=== PATIENT | female | born 1935 | race Caucasian/White ===

== ENCOUNTER 2016-07-01 12:30 | Emergency (ER) | payer OTHER, MEDICARE ==
[2016-07-01 12:50] VITALS: RESP 16
--- NOTE | 2016-07-01 14:01 | UCPHY ---
H & P Time Seen by Provider: 07/01/16 13:36 Patient Type: Established HPI/ROS: HPI High blood pressure. 81-year-old female by private vehicle. This patient was seen at her dentist's office. At her dentist's office blood pressure was high in the 150 systolic. They did not perform her dental exam and sent her to her primary care physician' s office for evaluation. She went to see Dr. Culver, her primary care physician. She could not get in to see Dr. Culver on short notice and was sent to the [facility]. At Urgent Care her blood pressure was again elevated in the 160s and they told her to come to this Urgent Care for further evaluation. She reports also that she has had a dull, gradual onset global headache which has been intermittent in nature for the last 1-2 weeks. She reports that it is resolved with Tylenol. She reports having this headache at this time but reports that is better. She has not had a fever. No other complaints. No history of trauma. She is not on anticoagulants. ROS: Constitutional: No fever, no chills. No weakness. Eyes: No discharge. No changes in vision. ENT: No sore throat. No nasal congestion or rhinorrhea. Respiratory: No cough. No shortness of breath. Cardiac: No chest pain, no palpitations. Gastrointestinal: No abdominal pain, no vomiting, no diarrhea. Genitourinary: No hematuria. No dysuria or increased frequency with urination. Musculoskeletal: No back pain. No neck pain. No myalgias or arthralgias. Skin: No rashes. Neurological: As above. No focal weakness or altered sensation. Past medical history: Irritable bowel syndrome, left-sided nephrectomy, urostomy, cholecystectomy, hysterectomy, as above. Social history: Nonsmoker. Here by herself Physical Exam: General Appearance: Alert, no distress. This patient is responding to questions appropriately and in full sentences. This patient appears well- hydrated and well-nourished. Eyes: Pupils equal and round no pallor or injection. No lid edema, erythema or injection. ENT, Mouth: Mucous membranes are moist. The pharyngeal tissues are unremarkable. No edema or swelling. No asymmetry suggestive of abscess. No erythema or exudates. No photophobia. No nystagmus. Respiratory: There are no retractions, lungs are clear to auscultation with good air movement bilaterally. Cardiovascular: Regular rate and rhythm. No murmur. Neurological: Motor sensory function is grossly intact. Cranial nerves are normal. Gait is normal. Skin: Warm and dry, no rashes. Musculoskeletal: Neck is supple and nontender. No pain on flexion of the neck. Extremities are symmetrical. All joints range without pain or impingement. Psychiatric: No agitation. No depression. Database: EKG: Imaging: Procedures: Emergency department course: Vital signs reviewed. She is moderately hypertensive with a blood pressure 165/ 100 in triage. She has a benign physical exam. She does not have a significant headache at this time. I offered her a stronger medication for her headache such as hydrocodone but she declined this. She has 1 kidney and cannot take NSAIDs. I discussed management of her blood pressure. I explained to her that I thought it was premature to start her on an antihypertensive medication here at the urgent care. I explained that this would best be done by her primary care physician who can monitor her blood pressure on a regular basis and follow her reaction to the prescribed antihypertensive medication if that is needed. She feels comfortable with this plan. Her presentation is not consistent with hypertensive emergency. She feels comfortable going home. I feel she is safe for discharge. She will call her primary care physician this afternoon for follow-up with Dr. Culver in the next day or 2. Return to emergency department precautions discussed. She was discharged in good condition. Differential Diagnosis: The differential diagnosis on this patient includes but is not limited to new onset hypertension, headache. Hypertensive emergency, subarachnoid hemorrhage, meningitis, encephalitis, cavernous sinus thrombosis, sagittal sinus thrombosis , intracranial mass, temporal arteritis unlikely. This represents a partial list of diagnoses considered. These considerations are based on history, physical exam, past history, reassessment and diagnostic testing. Smoking Status: Never smoked Constitutional: Initial Vital Signs Temperature (C) 36.9 C 07/01/16 12:44 Heart Rate 91 07/01/16 12:44 Respiratory Rate 16 07/01/16 12:44 Blood Pressure 165/100 H 07/01/16 12:44 O2 Sat (%) 95 07/01/16 12:44 O2 Delivery Mode Room Air Allergies/Adverse Reactions: Sulfa (Sulfonamide Antibiotics) Allergy (Mild, Verified 07/01/16 12:47) Rash Home Medications: Medication Instructions Recorded Ascorbic Acid [Vitamin C 500 mg 07/05/12 (OTC)] Gluc 2Kcl/Chondr/Jacinta Hy/Hy AC 07/05/12 [Glucosamine & Chondroitin Cap] Multivitamins [Tab-A-Kristopher] 07/05/12 Zolpidem Tartrate [Ambien 10 mg] 07/05/12 Premarin 07/01/16 Departure - Departure Disposition: Home, Routine, Self-Care Clinical Impression: Headache, Elevated blood pressure reading Condition: Good Instructions: General Headache (ED), Hypertension (ED) Additional Instructions: Read and follow provided instructions. Follow-up with your primary care physician, Dr. Culver in the neck 1-2 days for re-evaluation of your blood pressure and discussion of placement on a antihypertensive medication. It is also important that your blood pressure is well managed because of your history of having only 1 kidney. Return to the emergency department for worsening headache, chest pain, shortness of breath or other serious concerns. Referrals: Gladsi Culver MD [Primary Care Provider] - As per Instructions - PQRS PQRS Measurement: 134: Depression screening and followup, PRIME MD-PHQ2 (12 years and older) Over the last 2 weeks, how often have you been bothered by any of the following problems? 1. Feeling down, depressed, or hopeless? 2. Little interest or pleasure in doing things? Answered no to both questions. 130: Documentation of medications. Reviewed all patient medications, doses, route and frequency. 226: Do you smoke? No. 47: 65 and older: Advanced care planning. Patient designates surrogate decision maker as family. 51: 18 years old and older with diagnosis of COPD, spirometry performance. NA 52: 18 years old and older with COPD and symptoms of COPD or FEV1<60% predicted prescribed a B Agonist. NA
[2016-07-01 14:17] VITALS: BP 159/105; PULSE 87; TEMP 98.1; O2SAT 97
== END 2016-07-01 14:15 | disposition home or self-care (01) ==
LOC: CED 12:30
DX: R03.0 Elevated blood-pressure reading, without diagnosis of hypertension (principal); R51 Headache
CPT/HCPCS: 99214-PO; G0463-PO

== ENCOUNTER → 2016-12-02 | Outpatient (CLI) | payer OTHER, MEDICARE | LOC: BHFA 11:30 | PROVIDERS: ATTEND Internal Medicine | DX: I49.3 Ventricular premature depolarization (principal); R06.02 Shortness of breath ==

== ENCOUNTER → 2016-12-09 | Outpatient (CLI) | payer OTHER, MEDICARE | LOC: BHLMT 13:00 | PROVIDERS: ATTEND Internal Medicine Interventional Cardiology | DX: R06.02 Shortness of breath (principal); I10 Essential (primary) hypertension | CPT/HCPCS: 78452; 93017; A9500; J2785 ==

== ENCOUNTER → 2016-12-29 | Outpatient (CLI) | payer OTHER, MEDICARE | LOC: BHFA 10:00 | PROVIDERS: ATTEND Internal Medicine Cardiovascular Disease | DX: R06.02 Shortness of breath (principal) ==

== ENCOUNTER 2017-08-26 20:08 | Observation (INO) | payer OTHER, MEDICARE ==
[2017-08-26] MEDS ORDERED: NS 500 ML IV ONE (20:37)
[2017-08-26] MEDS ORDERED: ONDANSETRON 4 MG/2 ML VIAL IVP ONE (20:47)
[2017-08-26] MEDS ORDERED: FAMOTIDINE 20 MG/NACL 50 ML IV ONE (20:47)
[2017-08-26] MEDS ORDERED: HYDROmorphONE/DILAUDID 2 MG/ML INJ IVP ONE (20:47)
--- NOTE | 2017-08-26 20:52 | EDPHY ---
H & P Time Seen by Provider: 08/26/17 20:26 HPI/ROS: HPI Abdominal pain, nausea. 82-year-old female by private vehicle with family. This patient reports that at approximately 2:00 p.m. She developed mid and left upper abdominal pain described as aching and cramping. She has had nausea since this time and no appetite. She has a history of prior bowel obstructions and states that this pain feels similar to the pain she has had with these obstructions. She also describes the pain is radiating to her back. Her last meal was at approximately 12 noon. Last bowel movement was earlier this morning. She describes this is normal. No bloody or melenic stool. No change in diet. ROS: Constitutional: No fever, no chills. No weakness. Eyes: No discharge. No changes in vision. ENT: No sore throat. No nasal congestion or rhinorrhea. Respiratory: No cough. No shortness of breath. Cardiac: No chest pain, no palpitations. Gastrointestinal: As above, no diarrhea. Genitourinary: No hematuria. No dysuria or increased frequency with urination. Musculoskeletal: No back pain. No neck pain. No myalgias or arthralgias. Skin: No rashes. Neurological: No headache. No focal weakness or altered sensation. Past medical history: Ureteral bowel syndrome, left nephrectomy, cholecystectomy, appendectomy, hysterectomy, urostomy. Social history: Nonsmoker. Here with family member. No alcohol. Physical Exam: General Appearance: Alert, she does not appear in distress. This patient is responding to questions appropriately and in full sentences. This patient appears well-hydrated and well-nourished. Eyes: Pupils equal and round no pallor or injection. No lid edema, erythema or injection. Respiratory: There are no retractions, lungs are clear to auscultation with good air movement bilaterally. Cardiovascular: Regular rate and rhythm. No murmur. Gastrointestinal: Abdomen is soft with vague mid and left upper quadrant tenderness on palpation which is mild, no masses, bowel sounds are diminished but present. No focal tenderness at McBurney's point. No Willett sign. Neurological: Motor sensory function is grossly intact. Cranial nerves are normal. Gait is normal. Skin: Warm and dry, no rashes. Musculoskeletal: Neck is supple and nontender. Extremities are symmetrical. All joints range without pain or impingement. Psychiatric: No agitation. No depression. Database: EKG: Imaging: CT scan of abdomen and pelvis without IV contrast: Significant for fluid filled loops of small bowel in the left upper quadrant ileus versus partial small-bowel obstruction. Likely mesenteric adenitis and distended fluid-filled stomach. Other chronic changes noted. Results discussed with staff radiologist Dr. Nicholas Antonio. Procedures: Emergency department course: IV placed. The patient was placed on a monitor. She will be started on IV normal saline with 500 cc to 1 L to be given over the next hour. She will be given 0.25 mg of IV hydromorphone, 4 mg of IV Zofran and 20 mg of IV Pepcid initially. 10:15 p.m., patient re-evaluated. Resting comfortably at this time. Results of blood work and CT scan discussed with her and her son who is at the bedside. She can provide us with a urine sample at this time. She states that when she does developed urinary tract infection she usually has coinciding abdominal problems. General surgery paged. 10:25 p.m., spoke with general surgeon on-call Dr. Nicholas Antonio. Case discussed in detail with him. He will see this patient shortly in the emergency department. 10:55 p.m., urinalysis indicates infection. Patient will be given 1 g of IV Rocephin. Dr. Nicholas Antonio at the bedside. We will admit this patient for observation to his service. Her remaining emergency department course under my care has been uneventful. She was admitted in stable condition. Differential Diagnosis: The differential diagnosis on this patient includes but is not limited to bowel obstruction, gastritis, aortic aneurysm/dissection. This represents a partial list of diagnoses considered. These considerations are based on history, physical exam, past history, reassessment and diagnostic testing. Smoking Status: Never smoked Constitutional: Initial Vital Signs Temperature (C) 36.7 C 08/26/17 20:16 Heart Rate 92 08/26/17 20:16 Respiratory Rate 18 08/26/17 20:16 Blood Pressure 123/82 H 08/26/17 20:16 O2 Sat (%) 94 08/26/17 20:16 O2 Delivery Mode Nasal Cannula O2 (L/minute) 2 Allergies/Adverse Reactions: Sulfa (Sulfonamide Antibiotics) Allergy (Mild, Verified 08/26/17 20:20) Rash Home Medications: Medication Instructions Recorded Ascorbic Acid [Vitamin C 500 mg 07/05/12 (OTC)] Glucosam/Chondr/Collagn/Hyalur 07/05/12 [Glucosamine & Chondroitin Cap] Multivitamins [Tab-A-Kristopher] 07/05/12 Zolpidem Tartrate [Ambien 10 mg] 07/05/12 Premarin 07/01/16 Losartan Potassium [Cozaar 25 mg 25 mg PO DAILY 08/26/17 (*)] Uti Preventative? Name 08/26/17 Medical Decision Making - Diagnostics Imaging Results: Imaging Impressions Abdomen/Pelvis CT 08/26/17 20:48 Impression: 1. There are patulous loops of small bowel, particularly at the level of the mid -to-distal jejunum and proximal ileum, and while a partial obstructive process ( versus ileus) cannot be excluded, there is no obstructive lesion observed. The patient has been previously evaluated in 2012 and [address] findings. A mild left upper quadrant mesenteric adenitis may be present. 2. Status post left nephrectomy, cystectomy, ileal conduit, and cholecystectomy. Findings were discussed with Ced Kilpatrick MD at 22:09, on 08/26/2017. - Data Points Laboratory Results: Laboratory Results 08/26/17 20:44 08/26/17 20:44 08/26/17 08/26/17 08/26/17 22:25 20:44 20:44 WBC 13.05 10^3/uL H 10^3/uL (3.80-9.50) RBC 4.53 10^6/uL 10^6/uL (4.18-5.33) Hgb 14.2 g/dL g/dL (12.6-16.3) Hct 41.8 % % (38.0-47.0) MCV 92.3 fL fL (81.5-99.8) MCH 31.3 pg pg (27.9-34.1) MCHC 34.0 g/dL g/dL (32.4-36.7) RDW 13.6 % % (11.5-15.2) Plt Count 292 10^3/uL 10^3/uL (150-400) MPV 10.2 fL fL (8.7-11.7) Neut % (Auto) 75.3 % H % (39.3-74.2) Lymph % (Auto) 16.0 % % (15.0-45.0) Rusk % (Auto) 7.1 % % (4.5-13.0) Eos % (Auto) 0.5 % L % (0.6-7.6) Baso % (Auto) 0.6 % % (0.3-1.7) Nucleat RBC Rel Count 0.0 % % (0.0-0.2) Absolute Neuts (auto) 9.83 10^3/uL H 10^3/uL (1.70-6.50) Absolute Lymphs (auto) 2.09 10^3/uL 10^3/uL (1.00-3.00) Absolute Monos (auto) 0.93 10^3/uL H 10^3/uL (0.30-0.80) Absolute Eos (auto) 0.06 10^3/uL 10^3/uL (0.03-0.40) Absolute Basos (auto) 0.08 10^3/uL 10^3/uL (0.02-0.10) Absolute Nucleated RBC 0.00 10^3/uL 10^3/uL (0-0.01) Immature Gran % 0.5 % % (0.0-1.1) Immature Gran # 0.06 10^3/uL 10^3/uL (0.00-0.10) Sodium 140 mEq/L mEq/L (135-145) Potassium 4.5 mEq/L mEq/L (3.3-5.0) Chloride 101 mEq/L mEq/L (97-110) Carbon Dioxide 23 mEq/l mEq/l (22-31) Anion Gap 16 mEq/L mEq/L (8-16) BUN 31 mg/dL H mg/dL (7-23) Creatinine 1.0 mg/dL mg/dL (0.6-1.0) Estimated GFR 53 Glucose 102 mg/dL H mg/dL (70-100) Calcium 10.4 mg/dL mg/dL (8.5-10.4) Total Bilirubin 0.7 mg/dL mg/dL (0.1-1.4) Conjugated Bilirubin 0.4 mg/dL mg/dL (0.0-0.5) Unconjugated Bilirubin 0.3 mg/dL mg/dL (0.0-1.1) AST 34 IU/L IU/L (14-46) ALT 50 IU/L IU/L (9-52) Alkaline Phosphatase 104 IU/L IU/L (38-126) Total Protein 7.6 g/dL g/dL (6.3-8.2) Albumin 4.3 g/dL g/dL (3.5-5.0) Lipase 99 IU/L IU/L (23-300) Urine Color YELLOW Urine Appearance HAZY Urine pH 5.0 (5.0-7.5) Ur Specific Rembrandt 1.016 (1.002-1.030) Urine Protein NEGATIVE (NEGATIVE) Urine Ketones TRACE H (NEGATIVE) Urine Blood NEGATIVE (NEGATIVE) Urine Nitrate POSITIVE H (NEGATIVE) Urine Bilirubin NEGATIVE (NEGATIVE) Urine Urobilinogen NEGATIVE EU EU (0.2-1.0) Ur Leukocyte Esterase NEGATIVE (NEGATIVE) Urine RBC 5-10 /hpf H /hpf (0-3) Urine WBC 25-50 /hpf H /hpf (0-3) Ur Epithelial Cells NONE SEEN /lpf /lpf (NONE-1+) Urine Bacteria 1+ /hpf H /hpf (NONE SEEN) Urine Mucus TRACE /lpf /lpf (NONE-1+) Urine Glucose NEGATIVE (NEGATIVE) Medications Given: Discontinued Medications Hydromorphone HCl (Dilaudid) 0.25 mg IVP EDNOW ONE Stop: 08/26/17 20:48 Last Admin: 08/26/17 20:52 Dose: 0.25 mg Sodium Chloride (Ns) 500 mls @ 0 mls/hr IV EDNOW ONE; Wide Open PRN Reason: Protocol Stop: 08/26/17 20:38 Last Admin: 08/26/17 20:52 Dose: 500 mls Famotidine/Sodium Chloride (Pepcid 20 Mg (Premix)) 50 mls @ 200 mls/hr IV EDNOW ONE Stop: 08/26/17 21:01 Last Admin: 08/26/17 20:53 Dose: 50 mls Ondansetron HCl (Zofran) 4 mg IVP EDNOW ONE Stop: 08/26/17 20:48 Last Admin: 08/26/17 20:52 Dose: 4 mg Departure - Departure Disposition: [facility] Clinical Impression: Abdominal pain, Partial small bowel obstruction, Urinary tract infection Additional Instructions: Ceftriaxone, 1 g IV every 12 hr while here. On discharge Keflex 500 mg 4 times daily for 5 days or cefuroxime 500 mg twice daily for 5 days. Referrals: NONE *PRIMARY CARE P,. [Primary Care Provider] - As per Instructions
[2017-08-26 21:02] LABS: PLATELET COUNT 292 10^3/uL (150-400)
--- NOTE | 2017-08-26 23:34 | GDS ---
[f rep st] history and physical CHIEF COMPLAINT: Abdominal pain. PRESENT ILLNESS: An 82-year-old female who presents with some degree of abdominal discomfort. No vomiting. She states she had 2 bowel movements this morning, but has not passed any flatus or stool since that time. She states when she gets urinary tract infections she often has abdominal complaints. She also has been hospitalized at least twice for partial small-bowel obstructions, both of which resolved without surgery and without NG tube decompression. ALLERGIES: Sulfa. CURRENT MEDICATIONS: losartan. and a urinary antibiotic for suppresion. PREVIOUS SURGERY: Cystectomy 1996 and a left nephrectomy in 1991, cholecystectomy 2011. SOCIAL HISTORY: Nonsmoker. No alcohol use. REVIEW OF SYSTEMS: Denies asthma, heart trouble, diabetes, epilepsy, rheumatic fever. PHYSICAL EXAM: GENERAL: A pleasant elderly female. HEENT: No scleral icterus. Pharynx clear. NECK: Supple, without adenopathy. LUNGS: Clear. HEART: Normal S1, S2, without murmur. ABDOMEN: Mildly distended. A right lower quadrant ileal loop conduit is present. No obvious parastomal hernia. Healed midline incision. No incisional hernia is found. EXTREMITIES: Exam unremarkable. NEUROLOGIC: Exam unremarkable. DATA REVIEWED: White blood count 13,000. Electrolytes normal. CT scan is personally reviewed, showing loops of distended small bowel 3.4 cm in largest size. No clear transition zone. Some distal terminal ileum is distended, as well. The ileocecal valve is patent. Right colon has modest amount of stool in it. The left colon more decompressed. The radiologist interprets this as ileus versus small-bowel obstruction. The patient also has a potential urinary tract infection with 1+ bacteria seen, 25-50 white blood cells, nitrite positive although leukocyte esterase negative. ASSESSMENT: The patient has received antibiotics for the urinary tract infection in the ER and we will continue this. I would not put an NG tube in, even though her stomach is dilated on CT scan. I explained to her that if she starts vomiting, an NG tube might be indicated. We will observe her for resolution of this small bowel process. If she starts passing gas and having stools, she can be discharged home to complete oral antibiotics for her urinary tract infection, and if her condition deteriorates, an NG tube and possibly surgery would be indicated. /[id number]/MODL MTDD
[2017-08-27] MEDS: POTASSIUM Cl (KCl) 20 MEQ in LR 1,000 ML IV SCH ×2 (00:25→10:56)
[2017-08-27] MEDS: ONDANSETRON 4 MG/2 ML VIAL IVP PRN ×2 (00:30→06:46)
[2017-08-27] MEDS ORDERED: LOSARTAN POTASSIUM 25 MG TAB PO SCH (09:00)
--- NOTE | 2017-08-27 12:56 | ASMTCMCOM ---
CM Note CM Note Notes: Reviewed chart, discussed w/RN, and met w/pt. She lives at home independantly and manges well. She will dc home independantly when medically stable. Date Signed: 08/27/2017 12:55 PM Electronically Signed By:Nita Perry RN
[2017-08-27 15:15] VITALS: BP 109/66
--- NOTE | 2017-08-27 19:08 | SOAPPROG ---
SOAP Progress Note Assessment/Plan: Assessment:patient with complaints of nausea and pain overnight and presently. no emesis. no flatus. afebrile. abd dist, soft. no succussion splash. CT images reviewed from last sharon - PSBO with prob pelvic transition zone. UTI - given rocephin - she does note recent fatigue (has ileal conduit). KUB ordered. NPO for now. if evid persistent SBO, will place NGT. final reccs to follow. care plan reviewed with patient and nurse at bedside. images later completed- normal bowel gas pattern. she was without further pain or nausea and hungry. she started pass flatus. diet was advanced. she requested to be discharged to home later that afternoon - safe from surgical perspective - she is reliable and knows to call or return for further questions or concerns. Plan: 08/27/17 19:05 Objective: Vital Signs Temp Pulse Resp BP Pulse Ox 36.8 C 70 18 109/66 91 L 08/27/17 15:14 08/27/17 15:14 08/27/17 15:14 08/27/17 15:14 08/27/17 15:14 08/26/17 08/27/17 08/28/17 05:59 05:59 05:59 Intake Total 750 Balance 750 ICD10 Worksheet Patient Problems: Problems Problem Status Onset Abdominal pain Acute Partial small bowel obstruction Acute Urinary tract infection Acute
--- NOTE | 2017-08-27 19:59 | GDS ---
[f rep st] DISCHARGE SUMMARY REASON FOR ADMISSION: Small-bowel obstruction. HOSPITAL COURSE: An 82-year-old female with a significant history for a prior cystectomy with ileal conduit. She has had multiple prior small-bowel obstructions. She also describes multiple prior uri nary tract infections, which she notes are preceded by symptoms of fatigue. CT imaging showed the ab ove findings. She was admitted for overnight observation. She improved with conservative measures i ncluding n.p.o. and IV fluids. Her nausea and pain resolved. Her followup x-rays were unremarkable. Her diet was advanced. She requested to be discharged home the following evening. She will be see n in followup by General Surgery on an as-needed basis for further questions or concerns. The patien t is reliable and understands the indications for returning to the emergency room. She was to resume all pre-hospital medications. She did receive Rocephin in the hospital for her possible UTI. /[id number]/MODL
== END 2017-08-27 17:00 | disposition home or self-care (01) ==
LOC: F3E 08-27 00:14
PROVIDERS: ADMIT Surgery; ATTEND Surgery
DX: K56.600 Partial intestinal obstruction, unspecified as to cause (principal); N39.0 Urinary tract infection, site not specified; I10 Essential (primary) hypertension; Z90.5 Acquired absence of kidney; Z88.2 Allergy status to sulfonamides
CPT/HCPCS: 74019; 74176; 96365; 96375; 99285; G0378; J0696; J1170; J2270; J2405; J3480